=== PATIENT | female | born 1980 | race Caucasian/White ===

== ENCOUNTER 2021-09-30 19:20 | Inpatient (IN) | payer MEDICAID ==
[~2021-09-30] VITALS: Ht 175.3 cm; Wt 95.9 kg
[2021-09-30] MEDS ORDERED: BUSP5TAB20 PO (20:11)
[2021-09-30] MEDS ORDERED: ZOLP10TA8 PO (20:11)
[2021-09-30] MEDS ORDERED: MODA100T65 PO (20:11)
[2021-09-30] MEDS ORDERED: ALPR0.255 PO (20:11)
[2021-09-30] MEDS ORDERED: ZONI100C87 PO (20:11)
[2021-09-30] MEDS ORDERED: ESCI20TA87 PO (20:11)
[2021-09-30] MEDS ORDERED: DULO60CA98 PO (20:11)
[2021-09-30 21:03] LABS: COVID AG,FIA SOURCE NASOPHARYNGEAL
[2021-09-30] MEDS ORDERED: HALOPERIDOL 5 MG TABLET PO PRN (22:00)
[2021-09-30] MEDS ORDERED: LORazepam 2 MG TABLET PO PRN (22:00)
[2021-09-30] MEDS ORDERED: ZOLPIDEM TARTRATE 10 MG TABLET PO PRN (22:00)
[2021-09-30 23:03] LABS: BASOPHILS % (AUTO) 0.5 % (0.0-2.0); EOSINOPHILS % (AUTO) 1.1 % (1.0-6.0); HEMATOCRIT 38.3 % (36-46); HEMOGLOBIN 12.9 g/dL (12.0-16.0); LYMPHOCYTES # (AUTO) 2.4 K/uL (1.0-4.8); LYMPHOCYTES % (AUTO) 34.3 % (22.0-44.0); MEAN CORPUSCULAR HEMOGLOBIN 31.9 pg (26.0-34.0); MEAN CORPUSCULAR HGB CONC 33.6 G/dL (31.0-37.0); MEAN CORPUSCULAR VOLUME 95 fL (80-100); MONOCYTES # (AUTO) 0.8 K/uL (0.1-1.0); MONOCYTES % (AUTO) 11.1 % (2.0-9.0); NEUTROPHILS # (AUTO) 3.7 K/uL (1.8-7.7); PLATELET COUNT (AUTO) 230 K/uL (150-450); RED BLOOD CELL COUNT(AUTO) 4.04 MIL/uL (4.00-5.20); RED CELL DISTRIBUTION WIDTH 12.7 % (11.5-14.5)
[2021-09-30 23:23] LABS: ALANINE AMINOTRANSFERASE 17 U/L (12-78); ALBUMIN 3.3 g/dL (3.4-5.0); ALKALINE PHOSPHATASE 109 U/L (46-116); ANION GAP 6 mmol/L (8-16); ASPARTATE AMINOTRANSFERASE 14 U/L (15-37); BILIRUBIN,TOTAL 0.4 mg/dL (0.1-1.0); CALCIUM, TOTAL 8.5 mg/dL (8.8-10.5); CARBON DIOXIDE 26 mmol/L (22-29); CHLORIDE 108 mmol/L (98-107); CREATININE 0.95 mg/dL (0.60-1.30); GLOMERULAR FILTR. RATE CALC > 60 mL/min (>60); GLUCOSE,RANDOM 120 mg/dL (70-110); HCG,QUANTITATIVE < 1 mIU/mL (0-6); POTASSIUM 4.2 mmol/L (3.5-5.1); SODIUM SERUM 140 mmol/L (136-145); TOTAL PROTEIN, SERUM 7.1 g/dL (6.4-8.2); UREA NITROGEN, BLOOD 12 mg/dL (7-18)
[2021-10-01] MEDS ORDERED: MODA100T31 PO (00:19)
[2021-10-01] MEDS ORDERED: [UNRECOGNIZED DRUG - REMARK] PO (00:19)
[2021-10-01] MEDS ORDERED: LAMO200T10 PO (00:19)
[2021-10-01] MEDS ORDERED: ZONI100C87 PO (00:19)
[2021-10-01] MEDS ORDERED: BUSP30TA2 PO (00:19)
[2021-10-01] MEDS ORDERED: ATEN-73 PO (00:19)
[2021-10-01] MEDS ORDERED: ESCI20TA37 PO (00:19)
[2021-10-01 00:32] LABS: CHOL/HDL RATIO 2.4 (3.9-5.7); CHOLESTEROL 120 mg/dL (131-200); HDL CHOLESTEROL 51 mg/dL (40-60); LDL CHOL (CALC.) 56 mg/dL (0-130); TRIGLYCERIDES 67 mg/dL (15-150)
[2021-10-01] MEDS ORDERED: BusPIRone HCL 15 MG TABLET PO ONE (00:45)
[2021-10-01] MEDS ORDERED: ZONISAMIDE 100 MG CAPSULE PO ONE (00:45)
[2021-10-01] MEDS ORDERED: LEVONORGESTREL 1.5 MG TABLET PO ONE (01:00)
[2021-10-01] MEDS ORDERED: ACETAMINOPHEN 325 MG TABLET PO PRN (08:00)
[2021-10-01] MEDS ORDERED: MAGNESIUM HYDROXIDE SUSPENSION 30 ML UDCUP PO PRN (08:00)
[2021-10-01] MEDS ORDERED: MAG HYDROX/AL HYDROX/SIMETH ES 30 ML SUSPENSION UDCUP PO PRN (08:00)
[2021-10-01] MEDS ORDERED: CloNIDine HCL 0.1 MG TABLET PO PRN (08:00)
[2021-10-01] MEDS ORDERED: ONDANSETRON HCL 4 MG TABLET PO PRN ×2 (08:00→15:30)
[2021-10-01] MEDS ORDERED: ALBUTEROL SULFATE HFA 90 MCG/PUFF 8 GM INHALER IH PRN (08:00)
[2021-10-01] MEDS ORDERED: GuaiFENesin/D-METHORPHAN [SUGAR-FREE] 200-20MG/10 ML SYRUP UDCUP PO PRN (08:00)
[2021-10-01] MEDS ORDERED: LOPERAMIDE HCL 2 MG CAPSULE PO PRN (08:00)
[2021-10-01] MEDS ORDERED: DOCUSATE SODIUM 100 MG CAPSULE PO PRN (08:00)
[2021-10-01] MEDS ORDERED: IBUPROFEN 400 MG TABLET PO PRN (08:00)
[2021-10-01] MEDS ORDERED: PETROLATUM,WHITE 28 GM JELLY TP PRN (08:00)
[2021-10-01] MEDS: ATENOLOL 25 MG TABLET PO SCH ×2 (08:11→18:11)
[2021-10-01 13:55] VITALS: BP 100/60
[2021-10-01] MEDS ORDERED: ATEN-72 PO (15:39)
[2021-10-01] MEDS ORDERED: ATENOLOL 50 MG TABLET PO SCH (17:00)
[2021-10-01 18:37] VITALS: BP 110/77
[2021-10-02 05:49] VITALS: BP 124/75
[2021-10-02 07:32] LABS: BASOPHILS % (AUTO) 0.6 % (0.0-2.0); EOSINOPHILS % (AUTO) 1.5 % (1.0-6.0); HEMOGLOBIN 13.6 g/dL (12.0-16.0); LYMPHOCYTES # (AUTO) 2.9 K/uL (1.0-4.8); LYMPHOCYTES % (AUTO) 31.5 % (22.0-44.0); MEAN CORPUSCULAR HEMOGLOBIN 32.5 pg (26.0-34.0); MEAN CORPUSCULAR HGB CONC 34.8 G/dL (31.0-37.0); MEAN CORPUSCULAR VOLUME 93 fL (80-100); MONOCYTES # (AUTO) 0.6 K/uL (0.1-1.0); NEUTROPHILS # (AUTO) 5.5 K/uL (1.8-7.7); NEUTROPHILS % (AUTO) 59.4 % (40.0-70.0); PLATELET COUNT (AUTO) 227 K/uL (150-450); RED BLOOD CELL COUNT(AUTO) 4.17 MIL/uL (4.00-5.20); RED CELL DISTRIBUTION WIDTH 12.7 % (11.5-14.5)
[2021-10-02 07:43] LABS: HEMOGLOBIN A1C 5.9 % (3.8-5.6)
[2021-10-02 07:48] LABS: ALBUMIN 3.2 g/dL (3.4-5.0); BILIRUBIN,TOTAL 0.4 mg/dL (0.1-1.0); CALCIUM, TOTAL 8.5 mg/dL (8.8-10.5); CREATININE 1.03 mg/dL (0.60-1.30); POTASSIUM 4.2 mmol/L (3.5-5.1); TOTAL PROTEIN, SERUM 7.1 g/dL (6.4-8.2)
[2021-10-02] MEDS: ATENOLOL 25 MG TABLET PO SCH (09:00)
[2021-10-02] MEDS ORDERED: MODAFINIL 100 MG TABLET PO SCH (09:00)
[2021-10-02 09:13] VITALS: BP 106/60
[2021-10-02] MEDS ORDERED: ESCITALOPRAM OXALATE 20 MG TABLET PO SCH (13:15)
[2021-10-02 13:34] LABS: CHOL/HDL RATIO 2.9 (3.9-5.7)
[2021-10-02] MEDS ORDERED: BusPIRone HCL 15 MG TABLET PO SCH (17:00)
[2021-10-02] MEDS ORDERED: DULoxetine HCL 60 MG CAPSULE PO SCH (21:00)
== END 2021-10-02 14:30 | disposition home or self-care (01) | DRG 751 ==
LOC: EMS 19:22 → B2S 10-01 09:16
PROVIDERS: ADMIT Psychiatry & Neurology Psychiatry; ATTEND Psychiatry & Neurology Psychiatry
DX: F33.2 Major depressive disorder, recurrent severe without psychotic features (principal); R45.851 Suicidal ideations; E66.3 Overweight; F43.10 Post-traumatic stress disorder, unspecified; G43.909 Migraine, unspecified, not intractable, without status migrainosus; Z20.822 Contact with and (suspected) exposure to COVID-19; Z53.20 Procedure and treatment not carried out because of patient's decision for unspecified reasons; F41.9 Anxiety disorder, unspecified; R73.9 Hyperglycemia, unspecified; Z88.0 Allergy status to penicillin; Z88.8 Allergy status to other drugs, medicaments and biological substances; Z91.048 Other nonmedicinal substance allergy status; Z87.820 Personal history of traumatic brain injury; Z90.49 Acquired absence of other specified parts of digestive tract; Z68.31 Body mass index [BMI] 31.0-31.9, adult
CPT/HCPCS: 80053; 80061; 83036; 84702; 85025; 99285; G0480; Q9967